=== PATIENT | male | born 1945 | race Caucasian/White ===

== ENCOUNTER 2019-08-02 07:47 | Emergency (ER) | payer BC ==
--- NOTE | 2019-08-02 09:28 | RAD ---
RIGHT ANKLE THREE VIEWS: HISTORY: Pain and swelling. COMPARISON: None. FINDINGS: Nondisplaced distal fibular fracture, Mcclain B type, at the level of the syndesmosis. Mild bimalleolar soft tissue swelling. IMPRESSION: Nondisplaced Mcclain B fracture, distal fibula. POS: [facility]
== END 2019-08-02 09:09 | disposition home or self-care (01) ==
LOC: SCSER 07:47
DX: S82.831A Other fracture of upper and lower end of right fibula, initial encounter for closed fracture (principal); I10 Essential (primary) hypertension; E78.5 Hyperlipidemia, unspecified; Z79.899 Other long term (current) drug therapy; W18.30XA Fall on same level, unspecified, initial encounter
CPT/HCPCS: 29515

== ENCOUNTER 2021-05-20 11:59 | Emergency (ER) | payer BC ==
[2021-05-20] MEDS ORDERED: Ibuprofen 800 MG TAB ONE (14:28)
== END 2021-05-20 14:39 | disposition home or self-care (01) ==
LOC: ERS 11:59
DX: S92.402A Displaced unspecified fracture of left great toe, initial encounter for closed fracture (principal); S92.512A Displaced fracture of proximal phalanx of left lesser toe(s), initial encounter for closed fracture; S80.02XA Contusion of left knee, initial encounter; I10 Essential (primary) hypertension; E78.5 Hyperlipidemia, unspecified; W19.XXXA Unspecified fall, initial encounter